=== PATIENT | male | born 1955 | race Caucasian/White ===

== ENCOUNTER 2018-10-21 06:52 | Day surgery (SDC) | payer BC ==
[~2018-10-21] VITALS: Ht 172.7 cm; Wt 78.5 kg
[~2018-10-21 06:52] MED LIST: BENA10TA6 PO; ROSU40TA3 PO
[2018-10-21] MEDS ORDERED: PROPOFOL 200 MG/20 ML VIAL As Ordered ONE (07:07)
[2018-10-21] MEDS ORDERED: LIDOCAINE 2% INJ 100 MG/5 ML SDV (FOR ANES.) As Ordered ONE (07:07)
[2018-10-21] MEDS ORDERED: NS 1,000 ML IV ONE (07:15)
--- NOTE | 2018-10-21 07:55 | ROOR ---
Patient Name: Art Rivera Procedure Date: 10/21/2018 7:30 AM Date of : 1955 Age: 63 Room: [facility] Gender: Male Note Status: Finalized Procedure: Colonoscopy Indications: Screening for colorectal malignant neoplasm Providers: Chip Wynn MD Referring MD: Manpreet GEE MD Requesting Provider: Medicines: Monitored Anesthesia Care Complications: No immediate complications. Procedure: Pre-Anesthesia Assessment: - Prior to the procedure, a History and Physical was performed, and patient medications and allergies were reviewed. The patient is competent. The risks and benefits of the procedure and the sedation options and risks were discussed with the patient. All questions were answered and informed consent was obtained. Patient identification and proposed procedure were verified by the physician, the nurse and the anesthesiologist in the procedure room. Mental Status Examination: alert and oriented. Airway Examination: normal oropharyngeal airway and neck mobility. Respiratory Examination: clear to auscultation. CV Examination: normal. Prophylactic Antibiotics: The patient does not require prophylactic antibiotics. Prior Anticoagulants: The patient has taken no previous anticoagulant or antiplatelet agents. ASA Grade Assessment: II - A patient with mild systemic disease. After reviewing the risks and benefits, the patient was deemed in satisfactory condition to undergo the procedure. The anesthesia plan was to use monitored anesthesia care (MAC). Immediately prior to administration of medications, the patient was re-assessed for adequacy to receive sedatives. The heart rate, respiratory rate, oxygen saturations, blood pressure, adequacy of pulmonary ventilation, and response to care were monitored throughout the procedure. The physical status of the patient was re-assessed after the procedure. The Colonoscope was introduced through the anus and advanced to the terminal ileum, with identification of the appendiceal orifice and IC valve. The colonoscopy was performed without difficulty. The patient tolerated the procedure well. The quality of the bowel preparation was good. The terminal ileum, ileocecal valve, appendiceal orifice, and rectum were photographed. Scope insertion time was 4 minutes. Scope withdrawal time was 10 minutes. The total duration of the procedure was 14 minutes. Findings: The perianal and digital rectal examinations were normal. The terminal ileum appeared normal. Many small and large-mouthed diverticula were found in the sigmoid colon. There was no evidence of diverticular bleeding. Non-bleeding external and internal hemorrhoids were found during retroflexion. The hemorrhoids were medium-sized. No other significant abnormalities were identified in a careful examination of the remainder of the colon. Impression: - The examined portion of the ileum was normal. - Moderate diverticulosis in the sigmoid colon. There was no evidence of diverticular bleeding. - Non-bleeding external and internal hemorrhoids. - No specimens collected. Recommendation: - Patient has a contact number available for emergencies. The signs and symptoms of potential delayed complications were discussed with the patient. Return to normal activities tomorrow. Written discharge instructions were provided to the patient. - High fiber diet. - Continue present medications. - Preparation H ointment: Apply externally daily for 7 days. - Repeat colonoscopy in 10 years for screening purposes. - Based on the biopsy results you will receive a phone call from GI clinic in 2-3 weeks to review the pathology results AND/OR your results will be faxed to your Primary care physician. - Return to primary care physician. Chip Wynn MD Chip Wynn MD 10/21/2018 7:55:01 AM This report has been signed electronically. Number of Addenda: 0 Note Initiated On: 10/21/2018 7:30 AM Estimated Blood Loss: Estimated blood loss: none.
[2018-10-21 08:15] VITALS: BP 119/71
== END 2018-10-21 08:23 | disposition home or self-care (01) ==
LOC: M OPP 06:52
PROVIDERS: ATTEND Internal Medicine Gastroenterology
DX: Z12.11 Encounter for screening for malignant neoplasm of colon (principal); K57.30 Diverticulosis of large intestine without perforation or abscess without bleeding; K64.8 Other hemorrhoids; I10 Essential (primary) hypertension; E78.00 Pure hypercholesterolemia, unspecified; Z79.899 Other long term (current) drug therapy; Z85.46 Personal history of malignant neoplasm of prostate

== ENCOUNTER → 2019-01-06 | Outpatient (REF) | payer BC | LOC: M SFHCLERA 16:08 | PROVIDERS: ATTEND Nurse Practitioner Family | DX: R35.0 Frequency of micturition (principal) ==

== ENCOUNTER → 2019-04-05 | Outpatient (REF) | payer BC ==
[~2019-04-05] MED LIST changes: -BENA10TA6 PO; +BENA10TA9 PO; -ROSU40TA3 PO; +ROSU40TA4 PO
== END ==
LOC: M SFHCLERA 11:16
PROVIDERS: ATTEND Family Medicine
DX: E78.5 Hyperlipidemia, unspecified (principal)